=== PATIENT | female | born 1940 | race Two or more races ===

== ENCOUNTER 2021-09-07 08:49 | Inpatient (IN) | payer MEDICAID, OTHER ==
[~2021-09-07] VITALS: Ht 152.4 cm; Wt 62.4 kg
[2021-09-07] MEDS ORDERED: MORPHINE SULFATE INJECTION 2 MG/ML SYRG IV ONE (12:45)
[2021-09-07] MEDS ORDERED: ONDANSETRON HCL 4 MG/2 ML VIAL IV ONE (12:45)
[2021-09-07] MEDS ORDERED: ACETAMINOPHEN 325 MG TAB PO PRN (14:00)
[2021-09-07] MEDS ORDERED: ONDANSETRON HCL 4 MG/2 ML VIAL IV PRN (14:00)
[2021-09-07] MEDS ORDERED: TEMAZEPAM 15 MG CAP PO PRN (14:00)
[2021-09-07] MEDS: SODIUM CHLOR 0.9% PF (SALINE LOCK) 10ML VIAL/SYR IV SCH ×2 (14:21→22:00)
[2021-09-07] MEDS ORDERED: SODIUM CHLORIDE 0.9% 1,000 ML IV ONE (14:30)
[2021-09-07] MEDS ORDERED: cefTRIAXone 1GM/50ML D5W 50 ML IV ONE (14:30)
[2021-09-07 15:09] LABS: Urine Bacteria NONE SEEN /hpf (None Seen); Urine Blood 3+ /uL (Negative); Urine Mucus FEW (None Seen); Urine WBC 4 /hpf (0 - 5)
[2021-09-07 15:19] LABS: Alcohol, Urine < 3.0 mg/dL (0-10); Amphetamine Screen, Urine NEGATIVE (NEGATIVE); Barbiturate Scree,Urine NEGATIVE (NEGATIVE); Benzodiazephine Screen, Urine NEGATIVE (NEGATIVE); Cannabinoid Screen, Urine NEGATIVE (NEGATIVE); Cocaine Screen, Urine NEGATIVE (NEGATIVE); Opiate Scree,Urine NEGATIVE (NEGATIVE); Phencyclidine Screen, Urine NEGATIVE (NEGATIVE)
[2021-09-07 15:21] VITALS: BP 128/68
[2021-09-07] MEDS: HYDROcodone-ACET 5/325MG TAB PO PRN (15:47)
[2021-09-07 16:57] LABS: Basophils # (auto) 0.1 10 ^3/uL (0-0.2); Basophils % (auto) 0.8 % (0.0-2.0); Eosinophils # (auto) 0 10 ^3/uL (0-0.8); Eosinophils % (auto) 0.7 % (0.0-7.0); Hemoglobin 11.3 g/dL (12.2-16.2); Lymphocytes # (auto) 1.4 10 ^3/uL (0.4-5.4); Lymphocytes % (auto) 20.3 % (10.0-50.0); Mean Corpuscular Hgb Conc. 34.4 g/dL (32.0-36.0); Mean Corpuscular Volume 90.2 fL (80.0-100.0); Monocytes # (auto) 0.8 10 ^3/uL (0-1.3); Monocytes % (auto) 11.9 % (0.0-12.0); Neutrophils # (auto) 4.7 10 ^3/uL (1.6-8.6); Neutrophils % (auto) 66.3 % (37.0-80.0); Nucleated Red Blood Cells % 0.1 %; Red Blood Cells 3.65 10^6/uL (4.0-5.20); Red Cell Distribution Width 13.7 % (11.8-14.3); White Blood Cell 7.1 10^3/uL (4.4-10.8)
[2021-09-07 17:14] LABS: Albumin 2.4 g/dL (3.4-5.0); BUN/Creatinine Ratio 28.1; Calcium 8.3 mg/dL (8.5-10.1); Potassium 4.2 mmol/L (3.5-5.1)
[2021-09-07 17:18] LABS: Bilirubin, Total 0.7 mg/dL (0.2-1.0); Total Protein 5.2 g/dL (6.4-8.2)
[2021-09-07 17:24] LABS: INR 1.06 (0.9-1.15)
[2021-09-07 22:00] VITALS: BP 116/61
[2021-09-08] MEDS: MORPHINE SULFATE 4 MG/ML SYR/VIAL IV PRN (04:18)
[2021-09-08 04:56] VITALS: BP 130/73
[2021-09-08 06:06] LABS: Basophils # (auto) 0 10 ^3/uL (0-0.2); Basophils % (auto) 0.5 % (0.0-2.0); Eosinophils # (auto) 0 10 ^3/uL (0-0.8); Eosinophils % (auto) 0.3 % (0.0-7.0); Hematocrit 32.1 % (36.0-46.0); Hemoglobin 11.2 g/dL (12.2-16.2); Lymphocytes # (auto) 1.4 10 ^3/uL (0.4-5.4); Lymphocytes % (auto) 18.4 % (10.0-50.0); Mean Corpuscular Hemoglobin 31.7 pg (28.0-32.0); Mean Corpuscular Volume 90.7 fL (80.0-100.0); Monocytes % (auto) 12.6 % (0.0-12.0); Neutrophils # (auto) 5.2 10 ^3/uL (1.6-8.6); Neutrophils % (auto) 68.2 % (37.0-80.0); Red Blood Cells 3.54 10^6/uL (4.0-5.20); White Blood Cell 7.7 10^3/uL (4.4-10.8)
[2021-09-08] MEDS: SODIUM CHLOR 0.9% PF (SALINE LOCK) 10ML VIAL/SYR IV SCH ×3 (06:22→23:03)
[2021-09-08 06:29] LABS: Albumin 2.3 g/dL (3.4-5.0); Calcium 7.7 mg/dL (8.5-10.1); Potassium 4.1 mmol/L (3.5-5.1)
[2021-09-08 06:34] LABS: BUN/Creatinine Ratio 22.6; Bilirubin, Total 0.8 mg/dL (0.2-1.0); Total Protein 5.1 g/dL (6.4-8.2)
[2021-09-08] MEDS: ACETAMINOPHEN 325 MG TAB PO PRN (06:47)
[2021-09-08 08:28] VITALS: BP 116/63
[2021-09-08] MEDS: cefTRIAXone 1GM/50ML D5W 50 ML IV SCH (09:42)
[2021-09-08] MEDS ORDERED: ENOXAPARIN SOD 40 MG/0.4 ML SYRINGE SC SCH (10:00)
[2021-09-08 12:47] VITALS: BP 111/69
[2021-09-08] MEDS ORDERED: ceFAZolin 1GM/50ML 100 ML IV ONE (13:43)
[2021-09-08] MEDS ORDERED: TETRACAINE 1% INJ 2 ML VIAL IJ ONE (16:24)
[2021-09-08] MEDS ORDERED: MORPHINE SULF PF 5 MG/10 ML VIAL ONE (16:31)
[2021-09-08] MEDS ORDERED: LIDOCAINE 2% (LOCAL ANESTH.) PF 5ml SDV ONE (17:52)
[2021-09-08] MEDS ORDERED: ONDANSETRON HCL 4 MG/2 ML VIAL ONE (17:52)
[2021-09-08] MEDS ORDERED: PROPOFOL 10 MG/ML 20 ML IV ONE (17:52)
[2021-09-08] MEDS: LACTATED RINGER'S 1,000 ML IV SCH (18:00)
[2021-09-08] MEDS ORDERED: MORPHINE SULFATE 4 MG/ML SYR/VIAL IV PRN (18:30)
[2021-09-08] MEDS ORDERED: ONDANSETRON HCL 4 MG/2 ML VIAL IV PRN (18:30)
[2021-09-08] MEDS: ceFAZolin 2 GM in D5W 5% 100 ML IV SCH (21:27)
[2021-09-08] MEDS: HYDROcodone-ACET 10/325MG TAB PO PRN (21:28)
[2021-09-08 22:00] VITALS: BP 131/80
[2021-09-09] VITALS (7 sets, daily range): BP systolic 82–123; BP diastolic 53–74
[2021-09-09] MEDS: LACTATED RINGER'S 1,000 ML IV SCH (04:00)
[2021-09-09] MEDS: HYDROcodone-ACET 10/325MG TAB PO PRN ×2 (04:46→10:36)
[2021-09-09] MEDS: ceFAZolin 2 GM in D5W 5% 100 ML IV SCH (05:45)
[2021-09-09] MEDS: SODIUM CHLOR 0.9% PF (SALINE LOCK) 10ML VIAL/SYR IV SCH ×3 (05:48→22:10)
[2021-09-09 06:52] LABS: Basophils # (auto) 0 10 ^3/uL (0-0.2); Basophils % (auto) 0.4 % (0.0-2.0); Eosinophils # (auto) 0 10 ^3/uL (0-0.8); Eosinophils % (auto) 0.1 % (0.0-7.0); Hematocrit 30.2 % (36.0-46.0); Hemoglobin 10.6 g/dL (12.2-16.2); Lymphocytes # (auto) 1.8 10 ^3/uL (0.4-5.4); Mean Corpuscular Hemoglobin 31.9 pg (28.0-32.0); Mean Corpuscular Hgb Conc. 35.2 g/dL (32.0-36.0); Mean Corpuscular Volume 90.7 fL (80.0-100.0); Monocytes # (auto) 1.4 10 ^3/uL (0-1.3); Monocytes % (auto) 13.8 % (0.0-12.0); Neutrophils # (auto) 6.7 10 ^3/uL (1.6-8.6); Neutrophils % (auto) 67.7 % (37.0-80.0); Nucleated Red Blood Cells % 0.2 %; Red Blood Cells 3.33 10^6/uL (4.0-5.20); Red Cell Distribution Width 13.5 % (11.8-14.3); White Blood Cell 9.9 10^3/uL (4.4-10.8)
[2021-09-09 07:05] LABS: BUN/Creatinine Ratio 28.1; Calcium 7.7 mg/dL (8.5-10.1)
[2021-09-09] MEDS: cefTRIAXone 1GM/50ML D5W 50 ML IV SCH (09:29)
[2021-09-09] MEDS: ENOXAPARIN SOD 40 MG/0.4 ML SYRINGE SC SCH (09:30)
[2021-09-09] MEDS: ACETAMINOPHEN 325 MG TAB PO PRN (21:52)
[2021-09-09 22:47] LABS: Urine Bacteria NONE SEEN /hpf (None Seen); Urine Blood Negative /uL (Negative); Urine Specific Gravity 1.018 (1.001-1.035); Urine WBC 1 /hpf (0 - 5)
[2021-09-10 05:00] VITALS: BP 118/70
[2021-09-10] MEDS: SODIUM CHLOR 0.9% PF (SALINE LOCK) 10ML VIAL/SYR IV SCH ×3 (05:38→22:25)
[2021-09-10 05:39] LABS: Basophils # (auto) 0 10 ^3/uL (0-0.2); Basophils % (auto) 0.4 % (0.0-2.0); Eosinophils # (auto) 0.1 10 ^3/uL (0-0.8); Eosinophils % (auto) 1.1 % (0.0-7.0); Hematocrit 28.5 % (36.0-46.0); Hemoglobin 10.1 g/dL (12.2-16.2); Lymphocytes # (auto) 1.6 10 ^3/uL (0.4-5.4); Lymphocytes % (auto) 18.3 % (10.0-50.0); Mean Corpuscular Hemoglobin 31.9 pg (28.0-32.0); Mean Corpuscular Hgb Conc. 35.4 g/dL (32.0-36.0); Mean Corpuscular Volume 90.1 fL (80.0-100.0); Monocytes # (auto) 1.1 10 ^3/uL (0-1.3); Monocytes % (auto) 12.8 % (0.0-12.0); Neutrophils % (auto) 67.4 % (37.0-80.0); Red Blood Cells 3.16 10^6/uL (4.0-5.20); Red Cell Distribution Width 13.9 % (11.8-14.3); White Blood Cell 8.9 10^3/uL (4.4-10.8)
[2021-09-10 06:08] LABS: Albumin 1.8 g/dL (3.4-5.0); BUN/Creatinine Ratio 28.1; Calcium 7.6 mg/dL (8.5-10.1); Potassium 3.9 mmol/L (3.5-5.1)
[2021-09-10 06:10] LABS: Bilirubin, Total 0.8 mg/dL (0.2-1.0); Total Protein 4.5 g/dL (6.4-8.2)
[2021-09-10 08:00] VITALS: BP 118/65
[2021-09-10] MEDS: ENOXAPARIN SOD 40 MG/0.4 ML SYRINGE SC SCH (09:28)
[2021-09-10 12:00] VITALS: BP 110/68
[2021-09-10] MEDS: HYDROcodone-ACET 5/325MG TAB PO PRN (12:41)
[2021-09-10 16:00] VITALS: BP 100/66
[2021-09-10 20:00] VITALS: BP 102/65
[2021-09-10 22:33] VITALS: BP 102/65
[2021-09-11] MEDS: HYDROcodone-ACET 5/325MG TAB PO PRN ×2 (00:48→12:48)
[2021-09-11 05:00] VITALS: BP 102/65
[2021-09-11] MEDS: SODIUM CHLOR 0.9% PF (SALINE LOCK) 10ML VIAL/SYR IV SCH ×3 (05:43→22:17)
[2021-09-11 07:25] LABS: Basophils # (auto) 0 10 ^3/uL (0-0.2); Basophils % (auto) 0.3 % (0.0-2.0); Eosinophils # (auto) 0.1 10 ^3/uL (0-0.8); Hematocrit 25.8 % (36.0-46.0); Hemoglobin 9.4 g/dL (12.2-16.2); Lymphocytes # (auto) 1.7 10 ^3/uL (0.4-5.4); Lymphocytes % (auto) 24.3 % (10.0-50.0); Mean Corpuscular Hemoglobin 33.3 pg (28.0-32.0); Mean Corpuscular Hgb Conc. 36.4 g/dL (32.0-36.0); Mean Corpuscular Volume 91.6 fL (80.0-100.0); Monocytes # (auto) 0.8 10 ^3/uL (0-1.3); Monocytes % (auto) 11.9 % (0.0-12.0); Neutrophils # (auto) 4.3 10 ^3/uL (1.6-8.6); Neutrophils % (auto) 61.5 % (37.0-80.0); Red Blood Cells 2.82 10^6/uL (4.0-5.20); Red Cell Distribution Width 13.4 % (11.8-14.3); White Blood Cell 7.1 10^3/uL (4.4-10.8)
[2021-09-11 07:39] LABS: Potassium 4.2 mmol/L (3.5-5.1)
[2021-09-11 08:04] LABS: Albumin 1.8 g/dL (3.4-5.0); Calcium 7.3 mg/dL (8.5-10.1); Total Protein 4.8 g/dL (6.4-8.2)
[2021-09-11 08:32] VITALS: BP 103/58
[2021-09-11] MEDS: ENOXAPARIN SOD 40 MG/0.4 ML SYRINGE SC SCH (10:22)
[2021-09-11 12:30] VITALS: BP 103/69
[2021-09-11 16:00] VITALS: BP 103/62
[2021-09-11] MEDS: Ensure HIGH Protein Vanilla 8oz Bottle PO SCH (17:48)
[2021-09-11 21:56] VITALS: BP 103/58
[2021-09-12] MEDS: MORPHINE SULFATE 4 MG/ML SYR/VIAL IV PRN ×2 (00:26→20:03)
[2021-09-12 04:34] VITALS: BP 110/70
[2021-09-12] MEDS: SODIUM CHLOR 0.9% PF (SALINE LOCK) 10ML VIAL/SYR IV SCH ×3 (06:04→22:39)
[2021-09-12 06:34] LABS: Basophils # (auto) 0 10 ^3/uL (0-0.2); Basophils % (auto) 0.3 % (0.0-2.0); Eosinophils # (auto) 0.2 10 ^3/uL (0-0.8); Eosinophils % (auto) 2.4 % (0.0-7.0); Hematocrit 25.9 % (36.0-46.0); Hemoglobin 9.2 g/dL (12.2-16.2); Lymphocytes # (auto) 1.8 10 ^3/uL (0.4-5.4); Lymphocytes % (auto) 24.7 % (10.0-50.0); Mean Corpuscular Hemoglobin 32.2 pg (28.0-32.0); Mean Corpuscular Hgb Conc. 35.4 g/dL (32.0-36.0); Mean Corpuscular Volume 90.9 fL (80.0-100.0); Monocytes # (auto) 0.8 10 ^3/uL (0-1.3); Monocytes % (auto) 10.8 % (0.0-12.0); Neutrophils # (auto) 4.5 10 ^3/uL (1.6-8.6); Neutrophils % (auto) 61.8 % (37.0-80.0); Red Blood Cells 2.85 10^6/uL (4.0-5.20); Red Cell Distribution Width 13.7 % (11.8-14.3); White Blood Cell 7.3 10^3/uL (4.4-10.8)
[2021-09-12 07:01] LABS: Potassium 4.3 mmol/L (3.5-5.1)
[2021-09-12 07:05] LABS: Albumin 1.7 g/dL (3.4-5.0); Calcium 7.6 mg/dL (8.5-10.1)
[2021-09-12 07:23] LABS: Bilirubin, Total 0.7 mg/dL (0.2-1.0); Total Protein 4.7 g/dL (6.4-8.2)
[2021-09-12] MEDS: Ensure HIGH Protein Vanilla 8oz Bottle PO SCH ×2 (08:00→17:03)
[2021-09-12 09:00] VITALS: BP 121/77
[2021-09-12] MEDS: ENOXAPARIN SOD 40 MG/0.4 ML SYRINGE SC SCH (09:29)
[2021-09-12] MEDS: Pro-Stat SF 30ml Vanilla PO SCH (10:00)
[2021-09-12] MEDS: HYDROcodone-ACET 5/325MG TAB PO PRN ×2 (10:30→22:40)
[2021-09-12] MEDS: LACTATED RINGER'S 1,000 ML IV SCH ×2 (12:00)
[2021-09-12 13:00] VITALS: BP 105/63
[2021-09-12 17:00] VITALS: BP 109/67
[2021-09-12 22:00] VITALS: BP 109/60
[2021-09-13 04:54] VITALS: BP 108/66
[2021-09-13] MEDS: SODIUM CHLOR 0.9% PF (SALINE LOCK) 10ML VIAL/SYR IV SCH ×3 (06:00→21:04)
[2021-09-13 06:36] LABS: Basophils # (auto) 0 10 ^3/uL (0-0.2); Basophils % (auto) 0.8 % (0.0-2.0); Eosinophils # (auto) 0.2 10 ^3/uL (0-0.8); Eosinophils % (auto) 3.3 % (0.0-7.0); Hematocrit 25.1 % (36.0-46.0); Hemoglobin 8.9 g/dL (12.2-16.2); Lymphocytes # (auto) 1.6 10 ^3/uL (0.4-5.4); Lymphocytes % (auto) 28.1 % (10.0-50.0); Mean Corpuscular Hemoglobin 32.8 pg (28.0-32.0); Mean Corpuscular Hgb Conc. 35.3 g/dL (32.0-36.0); Monocytes # (auto) 0.6 10 ^3/uL (0-1.3); Monocytes % (auto) 11.3 % (0.0-12.0); Neutrophils # (auto) 3.1 10 ^3/uL (1.6-8.6); Neutrophils % (auto) 56.5 % (37.0-80.0); Nucleated Red Blood Cells % 0.1 %; Red Cell Distribution Width 13.9 % (11.8-14.3); White Blood Cell 5.5 10^3/uL (4.4-10.8)
[2021-09-13 06:50] LABS: Albumin 1.7 g/dL (3.4-5.0); Calcium 7.5 mg/dL (8.5-10.1); Potassium 4.4 mmol/L (3.5-5.1)
[2021-09-13 06:56] LABS: BUN/Creatinine Ratio 38.1; Bilirubin, Total 0.7 mg/dL (0.2-1.0); Total Protein 4.6 g/dL (6.4-8.2)
[2021-09-13] MEDS: Ensure HIGH Protein Vanilla 8oz Bottle PO SCH ×2 (08:06→17:04)
[2021-09-13 09:00] VITALS: BP 113/54
[2021-09-13] MEDS: Pro-Stat SF 30ml Vanilla PO SCH (09:35)
[2021-09-13] MEDS: ENOXAPARIN SOD 40 MG/0.4 ML SYRINGE SC SCH (09:36)
[2021-09-13] MEDS: HYDROcodone-ACET 5/325MG TAB PO PRN (09:46)
[2021-09-13 13:00] VITALS: BP 94/52
[2021-09-13 17:00] VITALS: BP 98/59
[2021-09-13] MEDS: LACTATED RINGER'S 1,000 ML IV SCH (18:15)
[2021-09-13 21:41] VITALS: BP 121/65
[2021-09-13] MEDS: DOCUSATE SOD 100 MG CAP PO PRN (22:11)
[2021-09-13] MEDS: HYDROcodone-ACET 10/325MG TAB PO PRN (22:12)
[2021-09-14] MEDS: MORPHINE SULFATE 4 MG/ML SYR/VIAL IV PRN ×2 (01:05→08:38)
[2021-09-14 04:47] VITALS: BP 99/61
[2021-09-14] MEDS: SODIUM CHLOR 0.9% PF (SALINE LOCK) 10ML VIAL/SYR IV SCH ×2 (05:10→14:00)
[2021-09-14] MEDS: LACTATED RINGER'S 1,000 ML IV SCH ×2 (05:12→14:00)
[2021-09-14 08:00] VITALS: BP 128/68
[2021-09-14] MEDS: Ensure HIGH Protein Vanilla 8oz Bottle PO SCH ×2 (08:00→18:00)
[2021-09-14] MEDS: Pro-Stat SF 30ml Vanilla PO SCH (09:45)
[2021-09-14] MEDS: ENOXAPARIN SOD 40 MG/0.4 ML SYRINGE SC SCH (09:45)
[2021-09-14 12:00] VITALS: BP 105/64
[2021-09-14] MEDS: DOCUSATE SOD 100 MG CAP PO PRN (14:37)
[2021-09-14 16:00] VITALS: BP 115/67
[2021-09-14] MEDS: HYDROcodone-ACET 5/325MG TAB PO PRN (16:20)
[2021-09-14 22:00] VITALS: BP 104/66
[2021-09-15] MEDS: SODIUM CHLOR 0.9% PF (SALINE LOCK) 10ML VIAL/SYR IV SCH ×2 (00:53→06:31)
[2021-09-15 05:00] VITALS: BP 113/63
[2021-09-15 05:07] LABS: Basophils # (auto) 0 10 ^3/uL (0-0.2); Basophils % (auto) 0.6 % (0.0-2.0); Eosinophils # (auto) 0.2 10 ^3/uL (0-0.8); Hematocrit 25.8 % (36.0-46.0); Hemoglobin 9.1 g/dL (12.2-16.2); Lymphocytes # (auto) 1.3 10 ^3/uL (0.4-5.4); Lymphocytes % (auto) 23.7 % (10.0-50.0); Mean Corpuscular Hemoglobin 32.5 pg (28.0-32.0); Mean Corpuscular Hgb Conc. 35.3 g/dL (32.0-36.0); Mean Corpuscular Volume 91.9 fL (80.0-100.0); Monocytes # (auto) 0.6 10 ^3/uL (0-1.3); Monocytes % (auto) 11.2 % (0.0-12.0); Neutrophils # (auto) 3.2 10 ^3/uL (1.6-8.6); Neutrophils % (auto) 61.5 % (37.0-80.0); Red Cell Distribution Width 14.4 % (11.8-14.3); White Blood Cell 5.3 10^3/uL (4.4-10.8)
[2021-09-15 05:29] LABS: Albumin 1.7 g/dL (3.4-5.0); BUN/Creatinine Ratio 39.5; Bilirubin, Total 0.7 mg/dL (0.2-1.0); Calcium 7.7 mg/dL (8.5-10.1); Total Protein 4.9 g/dL (6.4-8.2)
[2021-09-15] MEDS: Ensure HIGH Protein Vanilla 8oz Bottle PO SCH (07:59)
[2021-09-15] MEDS: Pro-Stat SF 30ml Vanilla PO SCH (07:59)
[2021-09-15 08:00] VITALS: BP 113/72
[2021-09-15] MEDS: ENOXAPARIN SOD 40 MG/0.4 ML SYRINGE SC SCH (08:03)
[2021-09-15] MEDS ORDERED: ACET325T10 PO (09:03)
[2021-09-15] MEDS: HYDROcodone-ACET 5/325MG TAB PO PRN (10:50)
[2021-09-15 11:02] VITALS: BP 113/72
[2021-09-15 12:00] VITALS: BP 102/59
== END 2021-09-15 12:16 | disposition home health service (06) | DRG 308 ==
LOC: ER 08:49 → CENTRAL 14:06
PROVIDERS: ADMIT Registered Nurse; ATTEND Internal Medicine
PROC: BQ111ZZ Fluoroscopy of Left Hip using Low Osmolar Contrast (ICD-10-PCS; 2021-09-08)
PROC: 0QS736Z Reposition Left Upper Femur with Intramedullary Internal Fixation Device, Percutaneous Approach (ICD-10-PCS; principal; 2021-09-08 16:24)
DX: S72.142A Displaced intertrochanteric fracture of left femur, initial encounter for closed fracture (principal); R64 Cachexia; D50.0 Iron deficiency anemia secondary to blood loss (chronic); I70.0 Atherosclerosis of aorta; Z20.822 Contact with and (suspected) exposure to COVID-19; W06.XXXA Fall from bed, initial encounter; Y93.89 Activity, other specified; Z87.442 Personal history of urinary calculi; Y92.098 Other place in other non-institutional residence as the place of occurrence of the external cause; Y99.8 Other external cause status; Z68.26 Body mass index [BMI] 26.0-26.9, adult
CPT/HCPCS: 36415; 51702; 71045; 72192; 73502; 76000; 80048; 80053; 80061; 80307; 81001; 82306; 83735; 84443; 85025; 85610; 86850; 86900; 86901; 87040; 93306; 96374; 96375; 97110; 97116; 97530; C1713; G0378; J0690; J0696; J2001; J2405; J2704; J7060